=== PATIENT | female | born 1995 | race Caucasian/White ===

== ENCOUNTER 2018-10-22 16:37 | Emergency (ER) | payer BC, OTHER ==
--- OUTSIDE RECORDS SUMMARY | 2018-10-22 16:39 | XMS REPORT ---
:1995 Author Organization eClinicalWorks Care Team Providers Name Role Phone Yamil [facility] Provider Role Unavailable Allergies, Adverse Reactions, Alerts Substance Reaction Event Type N.K.D.A. Info Not Available Non Drug Allergy Problems Problem Type Condition Code Onset Dates Condition Status Problem Environmental allergies Z91.09 Active Problem Tobacco use disorder F17.200 Active Assessment Tobacco use disorder F17.200 Active Assessment Encounter for preventative adult Z00.00 Active health care examination Assessment Need for meningococcal vaccination Z23 Active Medications No Known Medications Results No Known Results Immunizations Vaccine Administration Date Meningoccal MCV4 Feb 07, 2018 Summary Purpose eClinicalWorks Submission
[2018-10-22 17:19] LABS: Urine Bacteria <20 /HPF (<20); Urine Culture Reflex Order REFLEXED; Urine RBC <5 /HPF (NONE SEEN)
[2018-10-22 17:24] LABS: Absolute Lymphocytes (CBC) 0.3 K/uL (0.7-4.9); Absolute Monocytes 0.4 K/uL (0.1-1.3); Basophils % 0.1 % (0-1.3); Hematocrit 40.1 % (36.0-45.0); Lymphocytes % 2.3 % (15.3-44.8); MPV 8.9 fL (7.6-11.3); RBC Red Blood Cell Count 4.76 M/uL (3.86-4.86)
[2018-10-22] MEDS ORDERED: D5 0.9 NS 1,000 ML IV ONE ×3 (17:31→22:20)
[2018-10-22] MEDS ORDERED: ONDANSETRON 4 MG/2 ML VIAL ONE ×2 (17:31→19:59)
[2018-10-22 17:41] LABS: ALT/SGPT 20 U/L (12-78); AST/SGOT 12 U/L (15-37); Albumin 3.4 g/dL (3.4-5.0); Alkaline Phosphatase 60 U/L (45-117); BUN Blood Urea Nitrogen 8 mg/dL (7-18); Bicarbonate 24 mmol/L (21-32); Bilirubin Direct 0.1 mg/dL (0-0.2); Bilirubin Total 0.5 mg/dL (0.2-1.0); Glucose Level 88 mg/dL (74-106); Lipase 211 U/L (73-393); Potassium 3.8 mmol/L (3.5-5.1); Protein, Total 7.3 g/dL (6.4-8.2); Sodium Level 141 mmol/L (136-145)
[2018-10-22 17:59] LABS: Urine Blood NEGATIVE (NEG); Urine Glucose NEGATIVE (NEG); Urine Protein 1+ (NEG); Urine Specific Gravity >1.030 (1.005-1.030)
[2018-10-22] MEDS ORDERED: METOCLOPRAMIDE 10 MG/2mL INJ ONE ×2 (20:44→21:50)
--- NOTE | 2018-10-22 21:32 | ER ---
Nurse's Notes [facility] Name: Roger Vega Age: 23 yrs Sex: Female : 1995 Arrival Date: 10/22/2018 Time: 16:39 Bed 18 Private MD: Diagnosis: Cyclical vomiting, intractable Presentation: 10/22 16:40 Presenting complaint: Patient states: about 2 am last night i felt nauseous, i puked tw2 blood about midnight, fresh bright red blood, vomiting x8 times, and i feel dizzy because i havent ate anything. Transition of care: patient was not received from another setting of care. Onset of symptoms was October 22, 2018. Risk Assessment: Do you want to hurt yourself or someone else? Patient reports no desire to harm self or others. Initial Sepsis Screen: Does the patient meet any 2 criteria? No. Patient's initial sepsis screen is negative. Does the patient have a suspected source of infection? No. Patient's initial sepsis screen is negative. Care prior to arrival: None. 16:40 Method Of Arrival: Ambulatory tw2 16:40 Acuity: MICHAEL 3 tw2 Triage Assessment: 16:43 General: Appears uncomfortable, Behavior is anxious. Pain: Complains of pain in my tw2 throat and my stomach hurt. GI: Reports diarrhea, intolerance of fluids, intolerance of food, nausea, vomiting. [employer]: 16:42 LMP 05/06/2018, Verified, EDC 02/10/2019, Gestational age from LMP: 24 weeks 2 lp1 days Historical: - Allergies: 16:44 No Known Allergies; tw2 - Home Meds: 16:44 Vitamin Oral tab 1 tab once daily for [Active]; Zofran (as tw2 hydrochloride) 4 mg Oral tab as needed for Excessive Vomiting in [Active]; - Immunization history:: Adult Immunizations. - Social history:: Smoking status: . - Ebola Screening: : Patient denies travel to an Ebola-affected area in the 21 days before illness onset. Screenin:53 Abuse screen: Denies threats or abuse. Denies injuries from another. Nutritional bp screening: No deficits noted. Tuberculosis screening: No symptoms or risk factors identified. Fall Risk None identified. Assessment: 16:51 General: Appears in no apparent distress. comfortable, Behavior is cooperative, bp appropriate for age, anxious. Neuro: Level of Consciousness is awake, alert, obeys commands, Oriented to person, place, time, situation, Appropriate for age. Cardiovascular: No deficits noted. Respiratory: Airway is patent Respiratory effort is even, unlabored, Respiratory pattern is regular, symmetrical. GI: Abdomen is non-distended. : No signs and/or symptoms were reported regarding the genitourinary system. EENT: No deficits noted. Derm: No deficits noted. Musculoskeletal: Circulation, motion, and sensation intact. Range of motion: intact in all extremities. 16:51 Reassessment: Spoke with nurse from [facility] who reports that Dr. Gay suggested that ss patient be sent to GI specialist office (Dr. Gleason) prior to their office closing for consultation. Dr. Gleason directed \[facility] nursing staff to have patient be evaluated in ER for further evaluation as he would prefer to see her in a hospital setting and to have physician call him with test results. Dr. Kamara notified. 19:45 Reassessment: Patient stats nausea returned at this time; Patient informed on not lp1 drinking water until medication relieves nausea. General: Appears uncomfortable. GI: Reports nausea. 20:30 Reassessment: Patient and/or family updated on plan of care and expected duration. Pain lp1 level reassessed. Patient states continued nausea, drinking sips of water. 21:30 Reassessment: Report given to GERARDO Flores at [facility] for patient transfer to 1 L\[facility] Triage. 22:15 Reassessment: EMS at bedside for transfer. lp1 Vital Signs: 16:42 BP 110 / 72; Pulse 98; Resp 17; Temp 97.6(TE); Pulse Ox 100% on R/A; Weight 83.46 kg tw2 (R); Height 5 ft. 3 in. (160.02 cm); Pain 6/10; 17:28 BP 112 / 60; Pulse 94; Resp 16; Pulse Ox 98% ; bp 18:14 BP 100 / 55; Pulse 90; Resp 17; Pulse Ox 99% ; mh5 18:38 BP 107 / 66; Pulse 92; Resp 16; Pulse Ox 100% ; bp 19:45 BP 113 / 67; Pulse 92; Resp 18; Pulse Ox 99% on R/A; lp1 21:00 BP 115 / 61; Pulse 97; Resp 18; Temp 99.2(O); Pulse Ox 100% on R/A; lp1 16:42 Body Mass Index 32.59 (83.46 kg, 160.02 cm) tw2 ED Course: 16:39 Patient arrived in ED. mr 16:42 Triage completed. tw2 16:43 Arm band placed on. tw2 16:50 Alexander Kamara MD is Attending Physician. gs 16:50 Emerson Durbin RN is Primary Nurse. bp 16:54 Patient has correct armband on for positive identification. Bed in low position. Call bp light in reach. Side rails up X2. 17:10 Inserted saline lock: 20 gauge in right antecubital area, using aseptic technique. bp Blood collected. 21:50 No provider procedures requiring assistance completed. lp1 22:21 Patient transferred, IV remains in place. lp1 Administered Medications: 17:20 Drug: D5-NS 1000 ml Route: IV; Rate: bolus; Site: right antecubital; bp 18:38 Follow up: IV Status: Completed infusion; IV Intake: 1000ml bp 17:20 Drug: Zofran 4 mg Route: IVP; Site: right antecubital; bp 18:38 Follow up: Response: Nausea is decreased bp 19:50 Drug: D5-NS 1000 ml Route: IV; Rate: bolus; Site: right antecubital; lp1 21:15 Follow up: IV Status: Completed infusion; IV Intake: 1000ml lp1 19:50 Drug: Zofran 2 mg Route: IVP; Site: right antecubital; lp1 20:30 Follow up: Response: Nausea unchanged lp1 20:38 Drug: Reglan 5 mg Route: IVP; Site: right antecubital; jb4 21:00 Follow up: Response: Nausea is decreased lp1 21:40 Drug: Reglan 5 mg Route: IVP; Site: right antecubital; lp1 22:22 Follow up: Response: Nausea is decreased lp1 22:20 Drug: D5-NS 1000 ml Route: IV; Rate: 125 ml/hr; Site: right antecubital; lp1 22:22 Follow up: IV Status: Infusion continued upon transfer lp1 Intake: 18:38 IV: 1000ml; Total: 1000ml. bp 21:15 IV: 1000ml; Total: 2000ml. lp1 Outcome: 21:31 ER care complete, transfer ordered by . 21:51 Condition: stable lp1 21:51 Instructed on the need for transfer. 22:21 Transferred by ground EMS to [facility], Transfer form lp1 completed. X-rays sent w/ patient. 22:28 Patient left the ED. lp1 Signatures: Tran Divina mr AnjelBrea quinones, RN RN ss Dyan Orozco RN RN lp1 Charity Tejeda RN RN 2 Bebo Fernandez RN RN Michelle Hartley Alexander Hernández MD MD gs Peltier, Brian RN RN bp Corrections: (The following items were deleted from the chart) 21: 21:00 BP 115 / 61; Pulse 97bpm; Resp 18bpm; Pulse Ox 100% RA; lp1 lp1 21:30 16:42 LMP 05/06/2018 tw2 lp1
--- NOTE | 2018-10-22 21:32 | EDPHYS ---
Physician Documentation [facility] Name: Roger Vega Age: 23 yrs Sex: Female : 1995 Arrival Date: 10/22/2018 Time: 16:39 Bed 18 Private MD: ED Physician Alexander Kamara HPI: 10/22 19:15 This 23 yrs old Female presents to ER via Ambulatory with complaints of gs Nausea/Vomiting. 19:15 The patient presents to the emergency department with nausea, vomiting. Onset: The gs symptoms/episode began/occurred acutely, yesterday. Possible causes: . The symptoms are aggravated by nothing. The symptoms are alleviated by nothing. Associated signs and symptoms: Pertinent negatives: abdominal pain, dysuria. Severity of symptoms: At their worst the symptoms were severe in the emergency department the symptoms have improved moderately. HAD SEVERAL BOUTS EMESIS LAST EMESIS HAD SOME BLOODY STREAKS NO DION HEMATEMESIS. 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 - Social history:: Smoking status: . - Ebola Screening: : Patient denies travel to an Ebola-affected area in the 21 days before illness onset. ROS: 19:15 All other systems are negative. gs Exam: 19:15 Head/Face: Normocephalic, atraumatic. Eyes: Pupils equal round and reactive to light, gs extra-ocular motions intact. Lids and lashes normal. Conjunctiva and sclera are non-icteric and not injected. Cornea within normal limits. Periorbital areas with no swelling, redness, or edema. ENT: Nares patent. No nasal discharge, no septal abnormalities noted. Tympanic membranes are normal and external auditory canals are clear. Oropharynx with no redness, swelling, or masses, exudates, or evidence of obstruction, uvula midline. Mucous membranes moist. Neck: Trachea midline, no thyromegaly or masses palpated, and no cervical lymphadenopathy. Supple, full range of motion without nuchal rigidity, or vertebral point tenderness. No Meningismus. Chest/axilla: Normal chest wall appearance and motion. Nontender with no deformity. No lesions are appreciated. Cardiovascular: Regular rate and rhythm with a normal S1 and S2. No gallops, murmurs, or rubs. Normal PMI, no JVD. No pulse deficits. Respiratory: Lungs have equal breath sounds bilaterally, clear to auscultation and percussion. No rales, rhonchi or wheezes noted. No increased work of breathing, no retractions or nasal flaring. 19:15 Back: No spinal tenderness. No costovertebral tenderness. Full range of motion. Skin: Warm, dry with normal turgor. Normal color with no rashes, no lesions, and no evidence of cellulitis. MS/ Extremity: Pulses equal, no cyanosis. Neurovascular intact. Full, normal range of motion. Neuro: Awake and alert, GCS 15, oriented to person, place, time, and situation. Cranial nerves II-XII grossly intact. Motor strength 5/5 in all extremities. Sensory grossly intact. Cerebellar exam normal. Normal gait. 19:15 Constitutional: The patient appears alert, awake, uncomfortable. 19:15 Abdomen/GI: Inspection: gravid appearance, is noted, Palpation: abdomen is soft and non-tender. Vital Signs: 16:42 BP 110 / 72; Pulse 98; Resp 17; Temp 97.6(TE); Pulse Ox 100% on R/A; Weight 83.46 kg tw2 (R); Height 5 ft. 3 in. (160.02 cm); Pain 6/10; 17:28 BP 112 / 60; Pulse 94; Resp 16; Pulse Ox 98% ; bp 18:14 BP 100 / 55; Pulse 90; Resp 17; Pulse Ox 99% ; mh5 18:38 BP 107 / 66; Pulse 92; Resp 16; Pulse Ox 100% ; bp 19:45 BP 113 / 67; Pulse 92; Resp 18; Pulse Ox 99% on R/A; lp1 21:00 BP 115 / 61; Pulse 97; Resp 18; Temp 99.2(O); Pulse Ox 100% on R/A; lp1 16:42 Body Mass Index 32.59 (83.46 kg, 160.02 cm) tw2 MDM: 17:07 Patient medically screened. gs 20:51 Differential diagnosis: gastritis, pancreatitis, viral gastroenteritis, gs gastroenteritis. Data reviewed: vital signs, nurses notes. 21:19 Physician consultation: Richard Valencia MD and will see patient l and d. gs 21:30 ED course: still having emesis dr valencia wants her transferred for gi services. 10/22 16:52 Order name: Basic Metabolic Panel; Complete Time: 19:19 10/22 16:52 Order name: CBC with Diff; Complete Time: 19:19 10/22 16:52 Order name: Hepatic Function; Complete Time: 19:19 10/22 16:52 Order name: Lipase; Complete Time: 19:19 10/22 16:52 Order name: Urine Microscopic Only; Complete Time: 19:19 10/22 17:11 Order name: Urine Dipstick--Ancillary (enter results); Complete Time: 19:19 10/22 17:11 Order name: Urine --Ancillary (enter results); Complete Time: 19:19 10/22 17:21 Order name: Urine Culture [facility] 10/22 16:52 Order name: IV Saline Lock; Complete Time: 17:15 10/22 16:52 Order name: Labs collected and sent; Complete Time: 17:15 10/22 16:52 Order name: Urine Dipstick-Ancillary (obtain specimen); Complete Time: 17:07 Administered Medications: 17:20 Drug: D5-NS 1000 ml Route: IV; Rate: bolus; Site: right antecubital; bp 18:38 Follow up: IV Status: Completed infusion; IV Intake: 1000ml bp 17:20 Drug: Zofran 4 mg Route: IVP; Site: right antecubital; bp 18:38 Follow up: Response: Nausea is decreased bp 19:50 Drug: D5-NS 1000 ml Route: IV; Rate: bolus; Site: right antecubital; lp1 21:15 Follow up: IV Status: Completed infusion; IV Intake: 1000ml lp1 19:50 Drug: Zofran 2 mg Route: IVP; Site: right antecubital; lp1 20:30 Follow up: Response: Nausea unchanged lp1 20:38 Drug: Reglan 5 mg Route: IVP; Site: right antecubital; jb4 21:00 Follow up: Response: Nausea is decreased lp1 21:40 Drug: Reglan 5 mg Route: IVP; Site: right antecubital; lp1 22:22 Follow up: Response: Nausea is decreased lp1 22:20 Drug: D5-NS 1000 ml Route: IV; Rate: 125 ml/hr; Site: right antecubital; lp1 22:22 Follow up: IV Status: Infusion continued upon transfer lp1 Disposition: 10/22/18 21:31 Transfer ordered to [facility]. Diagnosis is Cyclical vomiting, intractable. - Reason for transfer: Higher level of care. - Accepting physician is meghan. - Condition is Stable. - Problem is new. - Symptoms are unchanged. Critical care time excluding procedures: :31 Critical care time: Bedside Care: 10 minutes, Consultation: 10 minutes, Family gs Intervention: 10 minutes. Total time: 30 minutes Signatures: Dispatcher [employer] EDMS Dyan Orozco RN RN lp1 Charity Tejeda RN RN tw2 Bebo Fernandez, RN RN jb4 Alexander Kamara MD MD gs Peltier, Brian RN RN bp Corrections: (The following items were deleted from the chart) 22:28 21:31 10/22/2018 21:31 Transfer ordered to [facility]. Diagnosis is Cyclical lp1 vomiting, intractable. Reason for transfer: Higher level of care. Accepting physician is meghan. Condition is Stable. Problem is new. Symptoms are unchanged. gs
[2018-10-22 23:04] VITALS: BP 115/61; TEMP 99.2; O2SAT 100
== END 2018-10-22 22:28 | disposition short-term general hospital (02) ==
LOC: ER 16:37
DX: O21.8 Other vomiting complicating pregnancy (principal); Z3A.24 24 weeks gestation of pregnancy
CPT/HCPCS: 36415; 80048; 80076; 81003; 81015; 81025; 83690; 85025; 87086; 87088; J2405; J2765

== ENCOUNTER 2019-02-10 00:26 | Inpatient (IN) | payer BC, OTHER ==
--- OUTSIDE RECORDS SUMMARY | 2019-02-10 04:14 | XMS REPORT ---
:1995 Author Organization eClinicalWorks Care Team Providers Name Role Phone Yamil Count Includes [facility] Provider Role Unavailable Allergies, Adverse Reactions, [...]
--- OUTSIDE RECORDS SUMMARY | 2019-02-10 04:14 | XMS REPORT ---
:1995 [facility] Address [address] [place] [address] Dr. Blackwood [address] [place] [id number] Care Team Providers Name Role Phone Unavailable Unavailable Unavailable Problems This patient has no known problems. Allergies, Adverse Reactions, Alerts This patient has no known allergies or adverse reactions. Medications This patient has no known medications.
[2019-02-10] MEDS ORDERED: Ringers Lactate 1,000 ML IV PRN (04:17)
[2019-02-10] MEDS ORDERED: PROMETHAZINE 25 MG/ML VIAL IM PRN (04:17)
[2019-02-10] MEDS ORDERED: BUTORPHANOL 1 MG/ML INJ IV PRN (04:17)
[2019-02-10] MEDS ORDERED: METHYLERGONOVINE 0.2MG/ML AMP IM PRN (04:17)
[2019-02-10] MEDS ORDERED: MIDAZOLAM HCL 2 MG/2 ML INJ IV PRN (04:17)
[2019-02-10] MEDS ORDERED: MEPERIDINE HCL 25 MG/0.5 ML IV PRN (04:17)
[2019-02-10] MEDS ORDERED: CARBOPROST TROME 250 MCG/ML IM PRN (04:17)
[2019-02-10] MEDS ORDERED: LIDOCAINE 1% MPF 30 ML VIAL SQ ONE (04:19)
[2019-02-10] MEDS ORDERED: Ringers Lactate 1,000 ML IV SCH (05:00)
[2019-02-10] MEDS ORDERED: OXYTOCIN/LR 20 UNIT/1,000 ML BAG IV SCH ×2 (05:00→14:00)
[2019-02-10 05:10] LABS: Absolute Lymphocytes (CBC) 1.5 K/uL (0.7-4.9); Basophils % 0.3 % (0-1.3); Hematocrit 32.4 % (36.0-45.0); Lymphocytes % 20.6 % (15.3-44.8); RBC Red Blood Cell Count 4.03 M/uL (3.86-4.86)
[2019-02-10 05:12] LABS: Urine Appearance CLOUDY; Urine Bilirubin NEGATIVE (NEG); Urine Blood NEGATIVE (NEG); Urine Color YELLOW; Urine Glucose NEGATIVE (NEG); Urine Protein NEGATIVE (NEG); Urine Specific Gravity 1.015 (1.005-1.030); Urine Urobilinogen 0.2 mg/dL (0.2-1.0)
[2019-02-10 05:22] LABS: Urine Microscopic Reflex ORDER UMIC
[2019-02-10 05:43] LABS: Urine Bacteria >50 /HPF (<20); Urine Culture Reflex Order REFLEXED; Urine RBC NONE SEEN /HPF (NONE SEEN)
[2019-02-10 06:13] VITALS: BMI 33.8
[2019-02-10] MEDS ORDERED: BUPIVACAINE 0.25% PF 30 ML VIAL ONE (11:23)
[2019-02-10] MEDS ORDERED: BUPIVACAINE 0.25% PF 10 ML VIAL IV PRN (11:27)
[2019-02-10] MEDS ORDERED: FENTANYL CITR 100 MCG/2 ML IV ONE (11:29)
[2019-02-10] MEDS ORDERED: FENTANYL/BUPIVACAINE/NS/PF 200 MCG/100 ML BAG EP PRN (11:29)
[2019-02-10] MEDS ORDERED: BUPIVACAINE 0.25% PF 10 ML VIAL ONE (11:35)
[2019-02-10] MEDS ORDERED: FENTANYL/BUPIVACAINE/NS/PF 200 MCG/100 ML BAG EP ONE (11:37)
[2019-02-10] MEDS ORDERED: METHYLERGONOVINE 0.2MG/ML AMP IM ONE (11:54)
[2019-02-10] MEDS ORDERED: DIPHENHYDRAMINE 25 MG TAB/CAP PO PRN (13:22)
[2019-02-10] MEDS ORDERED: DOCUSATE NA/SENNA CONC 1 TAB PO PRN (13:22)
[2019-02-10] MEDS ORDERED: ACETAMINOPHEN 500 MG TAB PO PRN (13:22)
[2019-02-10] MEDS ORDERED: BISACODYL 10 MG RECTAL SUPP RECT PRN (13:22)
[2019-02-10] MEDS ORDERED: Oxycodone HCl/Acetaminophen 1 TAB TAB PO PRN (13:22)
[2019-02-10] MEDS: Oxycodone HCl/Acetaminophen 1 TAB TAB PO PRN (19:40)
[2019-02-10 21:00] LABS: RPR (Rapid Plasma Reagin) NON-REACT (NON-REACT)
[2019-02-11] MEDS: IBUPROFEN 200 MG TAB PO PRN ×3 (00:51→13:25)
--- NOTE | 2019-02-11 08:26 | PREOPHP ---
Date of Admission: 02/10/2019 This is a 23-year-old, 3, para 1, 39 weeks according to best estimate, could be 40 weeks. Rh positive. Immune to Rubella. Negative beta strep screen. Chirag regularly, although very mil dly at this point. 2 cm, 50% effaced, vertex, -1 station. Cervix somewhat posterior. Rupture of me mbranes, clear fluid. Labor talk given. Patient will be requesting epidural when she gets into a go od labor pattern. Anticipate delivery sometime later today. JONA/DAVID Voice ID: [id number]
--- NOTE | 2019-02-11 08:29 | OP ---
Surgeon: Richard Gay MD This is a 23-year-old 2, para 1 at 39 weeks gestation 2.5 cm on admission. Ruptured membrane s, clear fluid. Patient went to an active labor pattern at approximately 6-7 cm, requested and recei jessi epidural anesthesia. This gave good effect during remainder of labor and delivery. Second stage ; once the patient agreed to push about 10-15 minutes or less. Spontaneous vaginal delivery of an es timated 6.5 to 7 pounds male infant. Nuchal cord loosely x1. Apgars 9 and 9. Butt delivery of th e placenta. Estimated blood loss 300 mL or less. 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 Patient tolerated all procedures well. Rh positive, immune to Rubella. Negative beta strep sc reen. Final Diagnoses: Term intrauterine at 39 weeks. Labor induction. Vaginal delivery. Epid ural anesthesia. Nuchal cord loosely x1. JONA/DAVID Voice ID: [id number] Report ID: [id number]
--- NOTE | 2019-02-11 08:29 | PN ---
Patient is christa every 2 minutes. She is now 7 to 8, 100% effaced, 0 to +1 station. She is frank ving back labor. I think the baby is occiput posterior. Instructed in pelvic rocks, but she does no t seem to be able to do those. She is requesting epidural. She is being hydrated but Anesthesia has not shown up yet and they may not have sufficient time to do one, we will see and the active part of labor at this point. JONA/DAVID Voice ID: [id number] Report ID: [id number]
--- NOTE | 2019-02-11 08:29 | PN ---
Patient has epidural in now, is about 9 cm, +1 station. Says she wanted to push and then she says sh e did not want to push. I think the cervix could be reduced and she could push but right now, she is not up for that, so we will simply wait until she feels like pushing on her own. JONA/DAVID Voice ID: [id number] Report ID: [id number]
--- NOTE | 2019-02-11 08:41 | DS ---
This 23-year-old, 3, para 1, 39 weeks gestation, delivered uneventfully of a 6 to 7 pound est imate male . Apgars 9 and 9. Epidural anesthesia. Small first degree laceration, requiring 3 sutures of 2-0 chromic. Nuchal cord loosely x1. Schultze delivery of the placenta, which is inspec roberto, noted be intact and normal. Less than 300 cc blood loss. Rh positive, immune to Rubella. Nega tive beta strep screen. ; afebrile, ambulating and voiding. Lochia is normal. Will be di smissed, to report back to my office in 6 weeks for followup, to report any temperature elevation of 100 degrees or greater, severe pain, heavy bleeding, or any other type of abnormalities. Dismissed w ith tramadol for analgesia although she may elect to take Motrin instead. No post epidural problems. Final Diagnoses: Term intrauterine at 39 weeks, vaginal delivery, epidural anesthesia. JONA/DAVID Voice ID: [id number] Report ID: [id number]
[2019-02-11] MEDS: Oxycodone HCl/Acetaminophen 1 TAB TAB PO PRN (09:40)
[2019-02-11 15:20] VITALS: BP 119/71; TEMP 98.2
[2019-02-12 19:43] LABS: HBsAG Nonreactive (Nonreactive)
== END 2019-02-11 14:30 | disposition home or self-care (01) | DRG 807 ==
LOC: 2ND-WC 04:11
PROVIDERS: ADMIT Specialist; ATTEND Specialist
PROC: 10907ZC Drainage of Amniotic Fluid, Therapeutic from Products of Conception, Via Natural or Artificial Opening (ICD-10-PCS; principal; 2019-02-10)
PROC: 10E0XZZ Delivery of Products of Conception, External Approach (ICD-10-PCS; 2019-02-10)
PROC: 0HQ9XZZ Repair Perineum Skin, External Approach (ICD-10-PCS; 2019-02-10)
DX: O70.0 First degree perineal laceration during delivery (principal); Z37.0 Single live birth; O69.81X0 Labor and delivery complicated by cord around neck, without compression, not applicable or unspecified; O64.0XX0 Obstructed labor due to incomplete rotation of fetal head, not applicable or unspecified; Z3A.39 39 weeks gestation of pregnancy
CPT/HCPCS: 36415; 81003; 81015; 85025; 86592; 86850; 86900; 86901; 87086; 87088; 87340; J0595; J2175; J2210; J2250; J2550; J2590; J3010